=== PATIENT | female | born 1985 | race African-American/Black ===

== ENCOUNTER 2018-03-23 08:53 | Emergency (ER) | payer OTHER ==
[2018-03-23] MEDS ORDERED: traMADol HCl 50 MG TAB ONE (09:16)
== END 2018-03-23 09:21 | disposition home or self-care (01) ==
LOC: ERS 08:53
DX: M54.5 Low back pain (principal); F17.210 Nicotine dependence, cigarettes, uncomplicated; I10 Essential (primary) hypertension; E87.6 Hypokalemia; K21.9 Gastro-esophageal reflux disease without esophagitis; Z71.6 Tobacco abuse counseling
CPT/HCPCS: 99406